=== PATIENT | female | born 1960 | race African-American/Black ===

== ENCOUNTER 2023-02-21 08:59 | Inpatient (IN) | payer SELFPAY ==
[2023-02-21] VITALS (27 sets, daily range): BP systolic 131–149; BP diastolic 72–100; PULSE 90–105; RESP 18–30; TEMP 36.6–37.1; O2SAT 89–99; BMI 29.8; BMI 29.1
--- NOTE | 2023-02-21 09:24 | ED.GENADULT ---
HPI - General Adult General Time Seen by Provider: 09:25 Date Seen: 02/21/23 Chief complaint: Shortness of Breath/Dyspnea Stated complaint: shortness of breath Time Seen by Provider: 02/21/23 09:24 Source: patient, EMS and RN notes reviewed Mode of arrival: EMS Limitations: no limitations History of Present Illness HPI narrative: This 62-year-old female is coming in via EMS with difficulty breathing and shortness of breath. Patient does have underlying COPD, is up from [place] visiting for her son's birthday. Over the last 2-3 days, has had increasing cough, is productive of sputum, does believe she has had fevers. She thought perhaps it was cat allergy initially. She has inhalers, does not remember what they are at this point. She is a smoker. Her [id number] is sick with a respiratory illness, patient believe she has been sick with a respiratory illness possibly 2. She has had headaches with this. Denies any chest pain or prior cardiac history. Denies any leg swelling. No calf pain. She was getting into the car to go be evaluated, could not even make it into the car in the ambulance was called. She is not on oxygen or known to be hypoxic. She was hypoxic for EMS and on arrival here. Despite 2 L nasal cannula oxygen, is occasionally dipping to 88 and 89%, mostly stays around 90%. She is not vaccinated for COVID but does not believe she has ever been diagnosed with that. Did receive a nebulization with EMS and reports she is feeling better. Related Data Home Medications Medication Instructions Recorded Confirmed Inhaler 02/21/23 amlodipine 02/21/23 cholesterol 02/21/23 Allergies Allergy/AdvReac Type Severity Reaction Status Date / Time narcotic Allergy Severe Uncoded 02/21/23 09:06 Review of Systems Status of ROS: Reports: 6 or more systems reviewed and unremarkable except as noted in History and below [facility] Social History Smoking Status: Current every day smoker What tobacco products do you use: cigarettes Smoking packs per day: 1 Smoking cigarettes per day: 20.0 Years smoked: 50 Smoking pack-years: 50.00 Do you use any of these nicotine containing products: None Second hand tobacco smoke exposure: Yes How often do you have a drink containing alcohol: 2-4 times a month How many standard drinks containing alcohol do you have on a typical day: 1 or 2 How often do you have six or more drinks on one occasion: Monthly AUDIT-C Alcohol total score: 4 Non-prescribed substance use: marijuana (any form) service: No Exam Const: Vital Signs, click to edit/add: Vital Signs - 24 hr 02/21/23 09:06 02/21/23 09:40 02/21/23 09:43 Temperature 98 F Pulse Rate 99 Pulse Rate [Pulse Oximeter] 101 H Respiratory Rate 22 Blood Pressure Blood Pressure [Le ft Upper Arm] 138/84 Pulse Oximetry 91 91 89 Oxygen Delivery Me thod Room Air Nasal Cannula Oxygen Flow Rate 2 2 02/21/23 09:43 02/21/23 09:45 02/21/23 10:00 Temperature Pulse Rate 103 H 97 Pulse Rate [Pulse Oximeter] Respiratory Rate Blood Pressure Blood Pressure [Le ft Upper Arm] Pulse Oximetry 90 92 89 Oxygen Delivery Me thod Oxygen Flow Rate 2 2 02/21/23 10:01 02/21/23 10:15 Temperature Pulse Rate 94 93 Pulse Rate [Pulse Oximeter] Respiratory Rate Blood Pressure 149/93 H Blood Pressure [Le ft Upper Arm] Pulse Oximetry 91 Oxygen Delivery Me thod Oxygen Flow Rate 2 Documenting provider has reviewed patient's vital signs: yes Common normals: no apparent distress, average body habitus, oriented x3, no limitations, healthy appearing and alert General appearance: cooperative, comfortable, well kempt and well developed Other: Is on nasal cannula oxygen when I see her. HENMT: Common normals: normocephalic, head/scalp atraumatic, hearing grossly normal bilaterally, external ears normal and external nose normal Head and scalp: normocephalic and atraumatic Face and sinus: normal facial exam Nose: external nose normal External ear: external ears normal Eye: Common normals: PERRL, EOMs intact bilaterally, conjunctivae normal and no scleral icterus Conjunctiva: conjunctiva(e) normal Pupil: PERRL Neck & C-Spine: Common normals: full ROM, no lymphadenopathy, supple, no meningeal signs, no JVD and thyroid normal Thyroid: thyroid normal Chest: Common normals: inspection of chest normal and palpation of chest normal Resp: Other: Patient had occasional cough when I was with her. She can speak certainly in short phrases and does not seem to have difficulty with speaking. Lung sounds are coarse, end-expiratory wheezing heard throughout both anteriorly and posteriorly. No crackles. Cardio: Common normals: no JVD Other: Heart sounds regular without any murmur but confounded by noisy lung sounds. GI: Common normals: Normal to inspection, nondistended, normoactive bowel sounds present, soft to palpation, non-tender, no hepatosplenomegaly and no masses Palpation: soft and no hepatosplenomegaly Extremity: Common normals: no calf tenderness and no pedal edema Neuro: Common normals: oriented x3 Sensorium/orientation: alert Meningeal signs: no meningeal signs Psych: Appearance: well kempt Course Course Hospital Course: Hypoxic patient with active wheezing and known COPD, possible new respiratory infection. She certainly is having exacerbation of COPD with hypoxia, need to rule out underlying infectious etiology including but not limited to COVID and pneumonia. She will be supported with oxygen here, will give her a DuoNeb and 60 mg oral prednisone due to the IV shortage. We will start with chest x-ray, get full complement of labs. Will do venous blood gas to make sure that we do not need to worry about CO2 retention. It is likely she will need admission on initial presentation here but reviewed with her that if she miraculously has a quick stabilization turn around, wood discharge to home. I do not see that to be likely scenario at this point however. Reevaluation(s) Time of Reevaluation #1: 11:24 Reevaluation #1: Patient had just come back from the bathroom, she was off oxygen going to the bathroom and was requesting the oxygen get put back on. Pulse oximetry was 81-83%. She recovered quickly with the nasal cannula 2 L. she feels better after nebulization. Lung sounds are more distant, still has some end expiratory wheezing but overall sounds improved. Did review with her her portable chest x-ray is without any acute pathology. Only lab that is pending at this time is D-dimer. She will get another nebulization, will order albuterol and talk to the hospitalist. Time of Reevaluation #2: 11:49 Reevaluation #2: D-dimer is within normal limits. Consultations Consultation #1: Have reviewed with our hospitalist Dr. Palacio whom accepts care. He is aware that the D-dimer is still pending. If for some reason it would come back positive while she is still down here, my plan would be to order chest CT PE protocol. If I do not have this result back, he will need to follow this up and he is aware. At this time, diagnosis is COPD exacerbation with hypoxia. No identifiable pneumonia but will continue to need to be monitored. Time: 11:29 Vital Signs Vital signs: Initial Vital Signs Temperature 98 F 02/21/23 09:06 Temperature Source Temporal Artery Scan 02/21/23 09:06 Pulse Rate 101 H 02/21/23 09:06 Respiratory Rate 22 02/21/23 09:06 Blood Pressure 138/84 02/21/23 09:06 Blood Pressure Mean 102 02/21/23 09:06 Blood Pressure Position Sitting 02/21/23 09:06 Pulse Oximetry 91 02/21/23 09:06 Oxygen Delivery Method Room Air 02/21/23 09:06 Vital Signs Temperature 98 F 02/21/23 09:06 Pulse Rate 101 H 02/21/23 09:06 Respiratory Rate 22 02/21/23 09:06 Blood Pressure 138/84 02/21/23 09:06 Pulse Oximetry 91 02/21/23 09:06 Oxygen Delivery Method Room Air 02/21/23 09:06 Temperature 98 F 02/21/23 09:06 Pulse Rate 93 02/21/23 10:15 Respiratory Rate 22 02/21/23 09:06 Blood Pressure 149/93 H 02/21/23 10:01 Pulse Oximetry 91 02/21/23 10:01 Oxygen Delivery Method Nasal Cannula 02/21/23 09:43 Oxygen Flow Rate 2 02/21/23 10:01 Medical Decision Making Lab Data Lab results reviewed: Yes I reviewed the patient's lab results Labs: Lab Results 02/21/23 02/21/23 Range/Units 09:40 09:55 WBC 5.50 (4.50-11.00) K/uL RBC 4.66 (4.00-5.20) m/uL Hgb 13.4 (12.0-16.0) gm/dL Hct 41.4 (33.0-51.0) % MCV 89 (80-100) fL MCH 29 (26-34) pg MCHC 32 (32-36) gm/dL RDW Coeff of Anuradha 13.6 (11.5-15.5) % Plt Count 173 (140-440) K/uL Neut % (Auto) 60.2 (42.0-72.0) % Lymph % (Auto) 26.2 (20-44) % [place] % (Auto) 11.6 H (0.0-11.0) % Eos % (Auto) 1.1 (0.0-7.0) % Baso % (Auto) 0.5 (0.0-3.0) % Neut # (Auto) 3.31 (1.7-7.0) K/uL Lymph # (Auto) 1.44 (0.90-2.90) K/uL [place] # (Auto) 0.60 (0.00-0.90) K/UL Eos # (Auto) 0.06 (0.00-0.50) K/uL Baso # (Auto) 0.03 (0.00-0.30) K/uL D-Dimer Quant (PE/DVT) 0.45 (0.00-0.50) ug/ml VBG pH 7.409 (7.32-7.43) VBG pCO2 48 (40-50) mmHG VBG pO2 43.2 (25-47) mmHG VBG HCO3 30 H (21-28) mmol/L Sodium 138 (135-149) mmol/L Potassium 3.7 (3.6-5.1) mmol/L Chloride 102 (96-114) mmol/L Carbon Dioxide 29 (20-32) mmol/L BUN 9 (7-30) mg/dL Creatinine 0.6 (0.5-1.5) mg/dL Estimated Creat Clear 51.14 Estimated GFR 100 ml/min Glucose 112 (60-115) mg/dL Lactate 1.2 (0.5-1.9) mmol/L Calcium 8.7 (8.4-10.6) mg/dL Total Bilirubin 0.4 (0.1-1.5) mg/dL AST 28 (12-35) U/L ALT 23 (4-35) U/L Alkaline Phosphatase 79 (40-150) U/L C-Reactive Protein 2.1 H (0.5-1.0) mg/dL NT-Pro-B Natriuret Pep 43 pg/mL Total Protein 8.1 (6.0-8.3) g/dL Albumin 4.4 (3.3-5.0) g/dL SARS-CoV-2 (PCR) Negative SARS-CoV-2 (Negative) Influenza Type A (PCR) Negative PCR FLU A (Negative) Influenza Type B (PCR) Negative PCR FLU B (Negative) RSV (PCR) Negative PCR RSV (Negative) POC Troponin I 0.00 L (0.01-0.04) ng/ml Imaging Data Chest x-ray: Attestation: I have reviewed the pertinent imaging results. My impression: I see no evidence of any acute pathology on my preliminary review. Radiologist's impression: Patient: RENNY DUARTE Facility:?[facility] Patient ID:?[id number] Site Patient ID:?[id number]. Site :?[id number] Study:?XRay Chest 1 VIEW PORTABLE-02/21/2023 9:45:57 AM Ordering Physician:?Mode Almaraz Final Report: INDICATION: Cough, fever and dyspnea COMPARISON: None TECHNIQUE: Single-view study FINDINGS: TUBES AND LINES: None. HEART AND MEDIASTINUM: The heart size is normal. The mediastinal contour appears normal for patient age. LUNGS AND PLEURAL SPACES: The lungs appear normal.The pleural spaces are unremarkable. OSSEOUS STRUCTURES: Age-appropriate appearance. No acute focal finding. IMPRESSION: No evidence of active pulmonary disease. Dictated by Geoffrey Iverson MD @ 02/21/2023 9:53:22 AM (Electronic Signature) ECG Data Attestation: I personally reviewed and interpreted this ECG as follows: (Normal sinus rhythm, 94 beats per minute. Flattened T-waves 1 and V6, inverted aVL. Note QRS interval looks to be developing generalized conduction delay, QRS is at 112 milliseconds, technically still within normal limits. QT corrected 422 milliseconds.) Prior ECG tracings: not available for review Critical Care Time Critical Care Time Critical Care Time: No Discharge Plan Discharge Clinical Impression: Hypoxia, Acute exacerbation of chronic obstructive pulmonary disease Patient Disposition: Admitted As Observation Condition: Improved
--- NOTE | 2023-02-21 09:29 | CRLHL7_ITS ---
For Patients: As a result of the Cures Act, medical imaging exams and procedure reports are released immediately into your electronic medical record. You may view this report before your referring provider. If you have questions, please contact your health care provider. INDICATION: Cough, fever and dyspnea COMPARISON: None TECHNIQUE: Single-view study FINDINGS: TUBES AND LINES: None. HEART AND MEDIASTINUM: The heart size is normal. The mediastinal contour appears normal for patient age. LUNGS AND PLEURAL SPACES: The lungs appear normal.The pleural spaces are unremarkable. OSSEOUS STRUCTURES: Age-appropriate appearance. No acute focal finding. IMPRESSION: No evidence of active pulmonary disease. Dictated by Geoffrey Iverson MD @ 02/21/2023 9:53:22 AM (Electronically Signed)
[2023-02-21] MEDS: predniSONE 20 MG TABLET 60 MG PO (09:55)
[2023-02-21 10:02] LABS: HCO3 VBG 30 mmol/L (21-28); Lactate* 1.2 mmol/L (0.5-1.9); PCO2 VBG 48 mmHG (40-50); PO2 VBG 43.2 mmHG (25-47); pH VBG 7.409 (7.32-7.43)
[2023-02-21] MEDS: IPRAT-ALBUT 0.5-2.5 MG/3 ML NEB 1 NEB IH ×3 (10:03→18:32)
[2023-02-21 10:07] LABS: Basophils Absolute Auto 0.03 K/uL (0.00-0.30); Basophils Percent Auto 0.5 % (0.0-3.0); Eosinophils Absolute Auto 0.06 K/uL (0.00-0.50); Eosinophils Percent Auto 1.1 % (0.0-7.0); Hematocrit 41.4 % (33.0-51.0); Hemoglobin* 13.4 gm/dL (12.0-16.0); Immature Granulocytes Abs Auto 0.02 K/uL (0.00-0.30); Immature Granulocytes Pct Auto 0.4 %; Lymphocytes Absolute Auto 1.44 K/uL (0.90-2.90); Lymphocytes Percent Auto 26.2 % (20-44); Mean Corpuscular HGB Conc 32 gm/dL (32-36); Mean Corpuscular Hemoglobin 29 pg (26-34); Mean Corpuscular Volume 89 fL (80-100); Monocytes Percent Auto 11.6 % (0.0-11.0); Neutrophils Absolute Auto 3.31 K/uL (1.7-7.0); Neutrophils Percent Auto 60.2 % (42.0-72.0); Platelet Count* 173 K/uL (140-440); RDW Coefficient of Variation % 13.6 % (11.5-15.5); Red Blood Count 4.66 m/uL (4.00-5.20)
[2023-02-21 10:10] LABS: Slide Review Reflex No
--- NOTE | 2023-02-21 10:16 | ED.NURSE ---
urine collected and sent to lab
[2023-02-21 10:21] LABS: Albumin* 4.4 g/dL (3.3-5.0); Chloride* 102 mmol/L (96-114)
[2023-02-21 10:22] LABS: Potassium* 3.7 mmol/L (3.6-5.1); Sodium* 138 mmol/L (135-149)
[2023-02-21 10:24] LABS: Alkaline Phosphatase* 79 U/L (40-150); Aspartate Amino Transferase* 28 U/L (12-35); Bilirubin Total* 0.4 mg/dL (0.1-1.5); Carbon Dioxide* 29 mmol/L (20-32); Creatinine* 0.6 mg/dL (0.5-1.5); Est. Creatinine Clearance* 51.14; Estimated Glomerular Filt Rate 100 ml/min
[2023-02-21 10:25] LABS: Alanine Aminotransferase* 23 U/L (4-35); Blood Urea Nitrogen* 9 mg/dL (7-30); Calcium* 8.7 mg/dL (8.4-10.6); Glucose* 112 mg/dL (60-115); Total Protein* 8.1 g/dL (6.0-8.3)
[2023-02-21 10:26] LABS: PCR FLU A Negative PCR FLU A (Negative); PCR FLU B Negative PCR FLU B (Negative); PCR RSV Negative PCR RSV (Negative); SARS PCR* Negative SARS-CoV-2 (Negative)
[2023-02-21 10:27] LABS: C Reactive Protein* 2.1 mg/dL (0.5-1.0)
[2023-02-21 10:34] LABS: NT Pro B Type NatriureticPept* 43 pg/mL
[2023-02-21 10:54] LABS: D Dimer Quantitative* 0.45 ug/ml (0.00-0.50)
[2023-02-21] MEDS: ALBUTEROL SULFATE 2.5 MG/3 ML VIAL.NEB NEB (11:29)
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
[2023-02-21] MEDS: ACETAMINOPHEN 325 MG TABLET 650 MG PO ×2 (14:41→20:46)
--- NOTE | 2023-02-21 15:04 | PC.NURSE ---
End of shift nursing note, care provided from admit at [id number]: Pt admit from ED at 1245 via WC. Pt is alert and oriented, pleasant and cooperative. Vitals stable, on 2L via NC sating low 90%. Pt states 4/10 headache pain, PRN Tylenol order placed and admin. Pt up to void, continent. SBA d/t SOB, no device. Pt on scheduled nebs. Has PRN nicotine ordered if pt wants later, declines at this time. Lunch tray arrived around 1400 and pt wishing to pick at tray at this time. Pt updated her family members and they may visit her later this evening. Pt in good spirits, resting in bed watching TV. Call light within reach and able to use appropriately.
--- NOTE | 2023-02-21 16:26 | RESP.RT ---
Pt seen. Asked about current breathing treatments, she replied she does not take anything regularly. However then did show me a Salmeterol MDI. Pharmacy reports she also has ProAir (Albuterol) BBS with faint expiratory wheezing, prolonged expiratory phase. RR 18, regular, breathing easy at this time. Oxygen at 2L to maintain Saturations of 93%. Provider ordered combi neb Q6 and Albuterol PRN, agreement with plan. Consider giving an albuterol neb during the night if she is awake. A/P: Beging weaning oxygen tomorrow, will require some MDI/COPD education.
[2023-02-21] MEDS: AMOXICILLIN/CLAVULANATE 875 mg/125 mg TABLET PO (17:39)
--- NOTE | 2023-02-21 18:15 | PC.NURSE ---
Addendum entered by Celina Painter RN 02/21/23 18:51: Patient on 1.5 L NC not 2 L. Original Note: End of Shift ([id number]): Patient pleasant and cooperative. Patient vitally stable, lungs with expiratory wheezes anteriorly, and course/Rhonchi throughout posteriorly. Bowel sounds WNL, IV intact. Patient independent in room and denies pain, some IV discomfort, IV assessed. Patient on 2 L NC with sats 90-93%. Patient expressed today is the most rest she has had in 4 days. Patient eats slowly but tolerating regular diet. Patient WNL of bowel and bladder.
[2023-02-21] MEDS: ENOXAPARIN 40 MG/0.4 ML INJ SUBCUT (20:38)
[2023-02-21] MEDS: SODIUM CHLORIDE 0.9 % (FLUSH) 10 ML SYRINGE 5 ML IVF (20:39)
[2023-02-22] VITALS (7 sets, daily range): BP systolic 138–154; BP diastolic 69–98; PULSE 78–104; RESP 16–20; TEMP 36.7–37.2; O2SAT 92–94
[2023-02-22] MEDS: IPRAT-ALBUT 0.5-2.5 MG/3 ML NEB 1 NEB IH ×4 (00:23→19:23)
[2023-02-22] MEDS: ACETAMINOPHEN 325 MG TABLET 650 MG PO (06:25)
--- NOTE | 2023-02-22 07:29 | PC.NURSE ---
End of shift: PT A&O. Pleasant and cooperative. VSS and on 1.5L of O2 to keep sats >90%. Pt complains of ?mild? headache. PRN Tylenol given. Pt denies SOB at rest but complains of some w/ exertion.
[2023-02-22] MEDS: AMLODIPINE 10 MG TABLET PO (08:41)
[2023-02-22] MEDS: AMOXICILLIN/CLAVULANATE 875 mg/125 mg TABLET PO ×2 (08:41→18:09)
[2023-02-22] MEDS: predniSONE 20 MG TABLET 60 MG PO (08:41)
[2023-02-22] MEDS: SODIUM CHLORIDE 0.9 % (FLUSH) 10 ML SYRINGE 5 ML IVF ×2 (08:42→17:33)
--- NOTE | 2023-02-22 15:40 | PM.IMPN1 ---
Progress Note: A&P Assessment and plan (1) Acute exacerbation of chronic obstructive pulmonary disease: Problem details: Improving. Possible discharge to home tomorrow. Discussed the critical importance of smoking cessation. Status: Acute (2) Hypoxia: Problem details: Discharge without oxygen tomorrow faint bowl to maintain her O2 sats on room air Status: Acute (3) Smoking: Problem details: Patient is motivated to quit smoking Status: Acute Plan Continue in hospital for 1 more day of respiratory monitoring and treatment. Possible discharge to home tomorrow if able to wean off oxygen. Time Spent With Patient Total time spent: Total time spent today is 30 minutes, 20 minutes in coordination of care discussing with patient management of COPD and smoking cessation Subjective Date Seen: 02/22/23 Interval history: 62-year-old female admitted to the hospital with COPD exacerbation and hypoxia. She reports feeling better today. She has less of a sense of gasping for air. She is still requiring oxygen around 1 to 1.5 L per nasal cannula to maintain her O2 sats in the low 90s. She reports she slept fairly well. Her appetite is not back to normal but is better. She has no other concerns today. Exam Narrative: Exam Narrative: She is alert, pleasant and appears in no distress. She gives her own history. Respirations with marked decreased breath sounds in all lung [place]. Prolonged expiratory phase. Occasional expiratory wheezes and rare basilar crackle. Cardiovascular: S1, S2, regular rate and rhythm. Abdomen is soft without tenderness or mass. Extremities without edema. Const: Vital Signs, click to edit/add: Vital Signs - 24 hr 02/21/23 16:28 02/21/23 16:28 02/21/23 16:28 Temperature 98.8 F Pulse Rate [Left A pical] Pulse Rate [Right Pulse Oximeter] 93 93 Respiratory Rate 30 H 30 H 30 H Blood Pressure [Ri t Arm] 132/76 Pulse Oximetry 93 90 Oxygen Delivery Me thod Nasal Cannula Nasal Cannula Oxygen Flow Rate 2 1.5 02/21/23 19:47 02/21/23 23:11 02/21/23 23:12 Temperature 98.1 F 98.5 F Pulse Rate [Left A pical] Pulse Rate [Right Pulse Oximeter] 91 90 Respiratory Rate 20 18 Blood Pressure [Ri ght Arm] 138/72 149/79 H Pulse Oximetry 93 93 93 Oxygen Delivery Me thod Room Air Nasal Cannula Nasal Cannula Oxygen Flow Rate 1.5 1.5 02/22/23 03:42 02/22/23 08:00 02/22/23 08:00 Temperature 98.4 F 98.9 F Pulse Rate [Left A pical] 89 Pulse Rate [Right Pulse Oximeter] 80 89 Respiratory Rate 18 18 18 Blood Pressure [[facility] Arm] 152/83 H 147/88 H Pulse Oximetry 92 92 92 Oxygen Delivery Me thod Nasal Cannula Nasal Cannula Nasal Cannula Oxygen Flow Rate 1.5 1.5 1.5 02/22/23 09:00 02/22/23 11:50 Temperature 98.7 F Pulse Rate [Left A pical] 97 Pulse Rate [Right Pulse Oximeter] 97 Respiratory Rate 16 Blood Pressure [[facility] Arm] 139/69 Pulse Oximetry 93 92 Oxygen Delivery Me thod Room Air Oxygen Flow Rate 1.5 Documenting provider has reviewed patient's vital signs: yes
--- NOTE | 2023-02-22 16:05 | PC.NURSE ---
Mild h/a 4 out of 10 at initial assessment. Headache improved after pt drank a coke with bkfst and lunch. Tapered off oxygen. Sats 95% on r/a. Please see eMar for medications provided on day shift. Adequate I & 0. Nebulizer scheduled Q6 hours. Pt states I'm feeling better, UAL in room. Report to Dia STEINER for evening shift.
[2023-02-22] MEDS: ENOXAPARIN 40 MG/0.4 ML INJ SUBCUT (21:15)
[2023-02-23] MEDS: IPRAT-ALBUT 0.5-2.5 MG/3 ML NEB 1 NEB IH (00:24)
--- NOTE | 2023-02-23 00:38 | PC.NURSE ---
End of Shift: Patient pleasant and cooperative. Afebrile. Denies pain. O2 sats greater than 90% on room air. Up independently in room. Tolerating regular diet with no nausea.
[2023-02-23 03:00] VITALS: BP 144/74; PULSE 88; RESP 18; O2SAT 95
[2023-02-23] MEDS: ACETAMINOPHEN 325 MG TABLET 650 MG PO (04:09)
--- NOTE | 2023-02-23 05:10 | PC.NURSE ---
[id number] Pt did not sleep well, up in recliner during shift. extremely anxious and fearful about current covid outbreak status on M/S floor. attempted to educate and reassure pt as best as possible.
--- NOTE | 2023-02-23 06:39 | PC.NURSE ---
0635 Pt left unit AMA, refused to wait to talk to MD, informed PT that hospitalist would arrive at 0700, pt refused to stay until then. called and updated Ramon, pt refused to stay until follow up orders were given. Pt A/O x3, SOB while leaving unit but adamantly refused staying, Pt left via W/C. AMA form filled out. informed pt to follow up with primary MD. Pt did not give name of pharmacy due to being out of town, informed nurse that her son will call to give pharmacy information in the event that MD's send medication.
--- NOTE | 2023-02-23 07:02 | PM.EN ---
Chart Event Note Date Seen: 02/23/23 Chart Event Note: Patient left the hospital this morning against medical advice. I did not talk to her or see her before she left.
--- NOTE | 2023-02-23 10:24 | PC.NURSE ---
PATIENT HAD LEFT AMA AT 0635. DISCUSSED WITH DR. AZUL WHEN HE ARRIVED FOR SHIFT. PRESCRIPTIONS GIVEN PER DR. AZUL AND CALLED IN BY THIS STAFF TO [facility]. PRESCRIPTIONS CALLED IN FOR PREDNISONE (20MG TABS) 40 MG PO DAILY FOR 5 DAYS (QTY 10 WITH NO REFILLS) AND AUGMENTIN 875MG 1 TAB PO BID FOR 5 DAYS (QTY 10 WITH NO REFILLS). UPDATED PATIENT'S SON CRISTOPHER THAT PRESCRIPTIONS WERE CALLED IN.
== END 2023-02-23 06:35 | disposition left against medical advice (07) | DRG 192 ==
LOC: ED 11:31 → MEDSURG 12:43
PROVIDERS: Admitting Provider Family Medicine; Emergency Provider Family Medicine; Visit Provider Family Medicine
DX: J44.1 Chronic obstructive pulmonary disease with (acute) exacerbation (principal); R09.02 Hypoxemia; F17.210 Nicotine dependence, cigarettes, uncomplicated; I10 Essential (primary) hypertension; E78.5 Hyperlipidemia, unspecified
CPT/HCPCS: 36415; 71045; 80053; 82803; 83605; 83880; 84484; 85025; 85379; 86140; 87631; 93005; 94640; 94761; 99284; 99285; A9270; J1650; J7512